=== PATIENT | female | born 1990 | race Caucasian/White ===

== ENCOUNTER 2020-06-11 06:50 | Outpatient (NON) | payer BC, SELFPAY ==
[2020-06-11 21:44] LABS: SARS-CoV-2 RNA PCR Negative
== END 2020-06-11 06:51 ==
PROVIDERS: PCP Family Medicine; Visit Provider Family Medicine
DX: R68.89 Other general symptoms and signs (principal); Z20.822 Contact with and (suspected) exposure to COVID-19
CPT/HCPCS: C9803; U0003; U0005